=== PATIENT | female | born 1945 | race American Indian/Alaskan Native ===

== ENCOUNTER 2016-12-03 06:20 | Emergency (ER) | payer MEDICARE, OTHER ==
--- NOTE | 2016-12-03 06:43 | EDM.PDOC ---
<Mariam Alatorre - Last Filed: 12/03/16 06:36> ED HPI GENERAL MEDICAL PROBLEM - General Chief Complaint: Upper Extremity Injury/Pain Stated Complaint: IN BY AMBULANCE Time Seen by Provider: 12/03/16 06:20 Source of Information: Reports: Patient History Limitations: Reports: No Limitations - History of Present Illness INITIAL COMMENTS - FREE TEXT/NARRATIVE: ED via [facility] with primary c/o left upper arm pain after falling in bathroom. Denies loss of consciousness. Pain also to midline neck and right hip. Diabetic , recently being treated for pneumonia and chronic wound to right lower leg. Onset: Today Location: Reports: Neck, Pelvis, Upper Extremity, Left Quality: Reports: Ache, Throbbing Severity: Moderate Context: Reports: Trauma (fall in bathroom) Treatments [employer]: Reports: Other (see below) (left arm sling.) - Related Data Allergies Allergy/AdvReac Type Severity Reaction Status Date / Time lisinopril Allergy Cannot Verified 12/03/16 06:33 Remember pseudoephedrine Allergy Cannot Verified 12/03/16 06:33 Remember Home Meds: Home Meds Acetaminophen [Acetaminophen] 650 mg PO ASDIRECTED PRN 05/18/13 [History] Aspirin [Adult Low Dose Aspirin EC] 81 mg PO DAILY 05/18/13 [History] Calcium Carbonate/Vitamin D3 [Calcium 250+D] 1 tab PO DAILY 05/18/13 [History] Ferrous Gluconate 325 mg PO DAILY 05/18/13 [History] Insulin Detemir [Levemir] 15 units SQ BEDTIME 05/18/13 [History] Loratadine/Pseudoephedrine [Loratadine-D 24Hr] 1 tab PO Q12HR 05/18/13 [History] Losartan [Cozaar] 50 mg PO DAILY 05/18/13 [History] PARoxetine HCl [Paxil] 40 mg PO DAILY 05/18/13 [History] Social & Family History - Tobacco Use Smoking Status *Q: Former Smoker Years of Tobacco use: 10 Used Tobacco, but Quit: Yes Month Tobacco Last Used: 11/07/13 Second Hand Smoke Exposure: Yes - Alcohol Use Days Per Week of Alcohol Use: 6 Number of Drinks Per Day: 4 Total Drinks Per Week: 24 - Recreational Drug Use Recreational Drug Use: Yes Drug Use in Last 12 Months: Yes Recreational Drug Type: Reports: Marijuana/Hashish Recreational Drug Last Use: monthly Review of Systems - Review of Systems Review Of Systems: See Below Constitutional: Reports: No Symptoms Eyes: Reports: No Symptoms, Glasses Ears: Reports: No Symptoms Nose: Reports: No Symptoms Mouth/Throat: Reports: No Symptoms Respiratory: Reports: No Symptoms Cardiovascular: Reports: No Symptoms GI/Abdominal: Reports: No Symptoms Genitourinary: Reports: No Symptoms Musculoskeletal: Reports: Neck Pain (midline, previous plate), Joint Pain ( right hip) Skin: Reports: No Symptoms Neurological: Reports: No Symptoms ED EXAM, GENERAL - Physical Exam Exam: See Below Exam Limited By: No Limitations General Appearance: Alert, Moderate Distress Eye Exam: Bilateral Eye: EOMI, PERRL Ears: Normal External Exam, Normal TMs Ear Exam: Bilateral Ear: TM normal Nose: Other (abasion nose bridge below glasses nose bridge). No: Nasal Tenderness, Nasal Drainage Head: Atraumatic, Normocephalic Neck: Limited Range of Motion, Tender Midline Respiratory/Chest: No Respiratory Distress, Lungs Clear, Decreased Breath Sounds (bases) Cardiovascular: Normal Peripheral Pulses, Regular Rate, Rhythm. No: No Edema (1 -2+) GI/Abdominal: Normal Bowel Sounds, Soft Back Exam: No: Paraspinal Tenderness, Vertebral Tenderness Extremities: Arm Pain (left upper), Other (right hip pain) Neurological: Alert, Oriented Skin Exam: Warm, Dry, Wound/Incision (chronic wound open left lower extremity 2cm, no drainage. ) Course - Orders/Labs/Meds Orders: Active Orders 24 hr Category Date Time Status Immobilizer [RC] ASDIRECTED Care 12/03/16 10:14 Active CULTURE BLOOD [BC] Stat Lab 12/03/16 06:29 Received Morphine Med 12/03/16 08:35 Active 4 mg IVPUSH Q2H PRN Ondansetron [Zofran] Med 12/03/16 09:32 Active 4 mg IV Q8H PRN Medication Orders Morphine Sulfate (Morphine) 4 mg IVPUSH Q2H PRN PRN Reason: Pain Stop: 12/03/16 10:36 Last Admin: 12/03/16 09:31 Dose: 4 mg Ondansetron HCl (Zofran) 4 mg IV Q8H PRN PRN Reason: Nausea/Vomiting Labs: Laboratory Tests 12/03/16 12/03/16 12/03/16 Range/Units 06:29 06:29 06:29 WBC 7.3 (5.0-10.0) 10^3/uL RBC 3.82 L (4.2-5.4) 10^6/uL Hgb 11.1 L (12.0-16.0) g/dL Hct 33.5 L (37.0-47.0) % MCV 87.7 (80-100) fL MCH 29.1 (27.0-34.0) pg MCHC 33.1 (33.0-35.0) g/dL Plt Count 556 H (150-450) 10^3/uL Neut % (Auto) 68.4 (42.2-75.2) % Lymph % (Auto) 24.5 (20.5-50.1) % [place] % (Auto) 5.6 (2-8) % Eos % (Auto) 1.2 (1.0-3.0) % Baso % (Auto) 0.3 (0.0-1.0) % Add Manual Diff Yes Neutrophils % (Manual) 61 % Band Neutrophils % 5 % Lymphocytes % (Manual) 34 % Platelet Estimate Increased Sodium 127 L (135-145) mmol/L Potassium 3.9 (3.6-5.0) mmol/L Chloride 90 L (101-111) mmol/L Carbon Dioxide 25.0 (21.0-31.0) mmol/L Anion Gap 15.9 BUN 13 (7-18) mg/dL Creatinine 1.1 (0.6-1.3) mg/dL Est Cr Clr Drug Dosing 39.93 mL/min Estimated GFR (MDRD) 49 BUN/Creatinine Ratio 11.81 Glucose 349 H (74-105) mg/dL POC Glucose (70-105) mg/dl Lactic Acid 2.4 H (0.5-2.2) mmol/L Calcium 8.6 (8.4-10.2) mg/dl Total Bilirubin 0.5 (0.2-1.0) mg/dL AST 80 H (10-42) IU/L ALT 64 H (10-60) IU/L Alkaline Phosphatase 95 (42-121) IU/L Creatine Kinase 74 (26-174) IU/L Troponin I < 0.02 (0.00-0.02) ng/ml Total Protein 8.4 H (6.7-8.2) g/dl Albumin 3.2 (3.2-5.5) g/dl Globulin 5.2 Albumin/Globulin Ratio 0.62 Amylase 59 (28-100) U/L Lipase 48 (22-51) U/L Urine Color (YELLOW) Urine Appearance (CLEAR) Urine pH (5.0-9.0) Ur Specific [place] (1.005-1.030) Urine Protein (NEGATIVE) Urine Glucose (UA) (NEGATIVE) Urine Ketones (NEGATIVE) Urine Occult Blood (NEGATIVE) Urine Nitrite (NEGATIVE) Urine Bilirubin (NEGATIVE) Urine Urobilinogen (0.2-1.0) mg/dL Ur Leukocyte Esterase (NEGATIVE) Urine RBC /HPF Urine WBC (0-5/HPF) /HPF Ur Epithelial Cells /HPF Urine Bacteria (0-FEW/HPF) /HPF 12/03/16 12/03/16 Range/Units 08:03 08:55 WBC (5.0-10.0) 10^3/uL RBC (4.2-5.4) 10^6/uL Hgb (12.0-16.0) g/dL Hct (37.0-47.0) % MCV (80-100) fL MCH (27.0-34.0) pg MCHC (33.0-35.0) g/dL Plt Count (150-450) 10^3/uL Neut % (Auto) (42.2-75.2) % Lymph % (Auto) (20.5-50.1) % [place] % (Auto) (2-8) % Eos % (Auto) (1.0-3.0) % Baso % (Auto) (0.0-1.0) % Add Manual Diff Neutrophils % (Manual) % Band Neutrophils % % Lymphocytes % (Manual) % Platelet Estimate Sodium (135-145) mmol/L Potassium (3.6-5.0) mmol/L Chloride (101-111) mmol/L Carbon Dioxide (21.0-31.0) mmol/L Anion Gap BUN (7-18) mg/dL Creatinine (0.6-1.3) mg/dL Est Cr Clr Drug Dosing mL/min Estimated GFR (MDRD) BUN/Creatinine Ratio Glucose (74-105) mg/dL POC Glucose 338 H (70-105) mg/dl Lactic Acid (0.5-2.2) mmol/L Calcium (8.4-10.2) mg/dl Total Bilirubin (0.2-1.0) mg/dL AST (10-42) IU/L ALT (10-60) IU/L Alkaline Phosphatase (42-121) IU/L Creatine Kinase (26-174) IU/L Troponin I (0.00-0.02) ng/ml Total Protein (6.7-8.2) g/dl Albumin (3.2-5.5) g/dl Globulin Albumin/Globulin Ratio Amylase (28-100) U/L Lipase (22-51) U/L Urine Color Yellow (YELLOW) Urine Appearance Clear (CLEAR) Urine pH 5.5 (5.0-9.0) Ur Specific [place] <= 1.005 (1.005-1.030) Urine Protein 30 H (NEGATIVE) Urine Glucose (UA) 500 H (NEGATIVE) Urine Ketones Negative (NEGATIVE) Urine Occult Blood Trace-lysed H (NEGATIVE) Urine Nitrite Negative (NEGATIVE) Urine Bilirubin Negative (NEGATIVE) Urine Urobilinogen 0.2 (0.2-1.0) mg/dL Ur Leukocyte Esterase Negative (NEGATIVE) Urine RBC 0-5 /HPF Urine WBC 5-10 H (0-5/HPF) /HPF Ur Epithelial Cells Many H /HPF Urine Bacteria Rare (0-FEW/HPF) /HPF Meds: Medications Generic Name Dose Route Start Last Admin Trade Name Freq PRN Reason Stop Dose Admin Morphine Sulfate 4 mg 12/03/16 08:35 12/03/16 09:31 Morphine IVPUSH 12/03/16 10:36 4 mg Q2H PRN Administration Pain Ondansetron HCl 4 mg 12/03/16 09:32 Zofran IV Q8H PRN Nausea/Vomiting Discontinued Medications Generic Name Dose Route Start Last Admin Trade Name Freq PRN Reason Stop Dose Admin Hydrocodone Bitart/Acetaminophen 1 tab 12/03/16 10:18 [place] 325-5 Mg PO 12/03/16 10:19 ONETIME ONE Sodium Chloride 1,000 mls @ 999 mls/hr 12/03/16 07:51 12/03/16 07:59 Normal Saline IV 12/03/16 08:51 999 mls/hr .BOLUS ONE Administration Morphine Sulfate 4 mg 12/03/16 07:10 12/03/16 07:36 Morphine IVPUSH 12/03/16 07:11 4 mg ONETIME ONE Administration Ondansetron HCl 4 mg 12/03/16 07:10 12/03/16 07:37 Zofran IV 12/03/16 07:11 4 mg ONETIME ONE Administration Departure - Departure Disposition: Home, Self-Care 01 Clinical Impression: Fracture of humerus Qualifiers: Encounter type: initial encounter Humerus Location: proximal Fracture type: closed Fracture morphology: unspecified fracture morphology Laterality: left Qualified Code(s): S42.202A - Unspecified fracture of upper end of left humerus , initial encounter for closed fracture - Discharge Information Instructions: How to Use a Shoulder Immobilizer, Humerus Fracture Treated With Immobilization, [id number] Forms: ED Department Discharge Additional Instructions: Take the pain medication as needed. keep the arm in the immobilizer until seen by the orthopedic doctor. You will need to go on Sunday December 11, [address] Robertson in [facility] in [place]. paxton valenzuela [phone] to make an appointment for Friday. - My Orders Last 24 Hours: My Active Orders 12/03/16 08:35 Morphine 4 mg IVPUSH Q2H PRN 12/03/16 09:32 Ondansetron [Zofran] 4 mg IV Q8H PRN 12/03/16 10:14 Immobilizer [RC] ASDIRECTED - Assessment/Plan Last 24 Hours: My Active Orders 12/03/16 08:35 Morphine 4 mg IVPUSH Q2H PRN 12/03/16 09:32 Ondansetron [Zofran] 4 mg IV Q8H PRN 12/03/16 10:14 Immobilizer [RC] ASDIRECTED <Con Kemp - Last Filed: 12/03/16 10:36> Course - Re-Assessments/Exams Free Text/Narrative Re-Assessment/Exam: 12/03/16 07:39 Assessed pt, currently on stretcher in brace. c/o pain to left arm and right hip. Cervical CT revealed no acute fracture however pt very tender in upper cervical area. With c-spine alignment maintained via second person, cervical spine evaluated and revealed bruising to upper cervical area at scalp line. no tenderness noted to palpation of lateral cervical spine or mid cervical spine right above or below bruise. Pt states that she does not have bone pain, mostly on the skin to light touch. LUE in sling reveal small abrasion to upper forearm with no evidence of open injury. Pulses present bilaterally R>L radial pulse. 12/03/16 08:34 Spoke with [facility] call who states that orthopedist is in the OR and will return call when he is complete. 12/03/16 09:38 returned call from [facility] to inform that Dr. strickland was still in surgery and it would be about 45 mins before he would be able to return call. 12/03/16 10:[address] Robertson, [facility] orthopedics who states that pt shoulder be placed in a shoulder immobilizer and to follow up in his clinic on December 11. No acute fractures of her pelvic area according to his read. Will dc patient home. Departure - Departure Time of Disposition: 10:21 Condition: Good - My Orders Last 24 Hours: My Active Orders 12/03/16 08:35 Morphine 4 mg IVPUSH Q2H PRN 12/03/16 09:32 Ondansetron [Zofran] 4 mg IV Q8H PRN 12/03/16 10:14 Immobilizer [RC] ASDIRECTED - Assessment/Plan Last 24 Hours: My Active Orders 12/03/16 08:35 Morphine 4 mg IVPUSH Q2H PRN 12/03/16 09:32 Ondansetron [Zofran] 4 mg IV Q8H PRN 12/03/16 10:14 Immobilizer [RC] ASDIRECTED
[2016-12-03] MEDS ORDERED: Ondansetron 4 MG/2 ML SDV IV ONE (07:10)
[2016-12-03] MEDS ORDERED: Morphine 4 MG/ML Syringe IVPUSH ONE (07:10)
[2016-12-03 07:12] LABS: CHLORIDE,CL 90 mmol/L (101-111); SODIUM,NA 127 mmol/L (135-145)
[2016-12-03] MEDS ORDERED: Sodium Chloride 0.9% 1,000 ML IV ONE (07:51)
[2016-12-03] MEDS ORDERED: Morphine 4 MG/ML Syringe IVPUSH PRN (08:35)
[2016-12-03] MEDS ORDERED: Ondansetron 4 MG/2 ML SDV IV PRN (09:32)
[2016-12-03] MEDS ORDERED: Acetaminophen/HYDROcodone 325-5 MG Tab PO ONE (10:18)
== END 2016-12-03 10:50 | disposition home or self-care (01) ==
LOC: DL.ED 06:20
DX: S42.202A Unspecified fracture of upper end of left humerus, initial encounter for closed fracture (principal); S50.812A Abrasion of left forearm, initial encounter; W18.30XA Fall on same level, unspecified, initial encounter; E11.9 Type 2 diabetes mellitus without complications; Z79.4 Long term (current) use of insulin; Z79.899 Other long term (current) drug therapy; Z79.82 Long term (current) use of aspirin; Z87.891 Personal history of nicotine dependence; F12.90 Cannabis use, unspecified, uncomplicated; Z88.8 Allergy status to other drugs, medicaments and biological substances; S00.31XA Abrasion of nose, initial encounter; S81.802A Unspecified open wound, left lower leg, initial encounter; S22.41XA Multiple fractures of ribs, right side, initial encounter for closed fracture
CPT/HCPCS: 36415; 71010; 72125; 72192; 73060; 80053; 81001; 82150; 82550; 82962; 83605; 83690; 84484; 85025; 87040; 96361; 96374; 96375; 96376; 99284; 99285; A9270; J2270; J2405; J7030

== ENCOUNTER 2024-03-23 05:57 | Emergency (ER) | payer MEDICARE, OTHER ==
[2024-03-23 06:17] VITALS: BP 136/74; PULSE 91
[2024-03-23 06:20] LABS: BASOPHILS PERCENT AUTO 0.1 % (0.0-1.0); HEMATOCRIT 34.9 % (37.0-47.0); HEMOGLOBIN 11.2 g/dL (12.0-16.0); LYMPHOCYTES PERCENT AUTO 9.8 % (20.5-50.1); MEAN CORPUSCULAR HEMOGLOBIN 29.3 pg (27.0-34.0); MEAN CORPUSCULAR HGB CONC 32.1 g/dL (33.0-35.0); MEAN CORPUSCULAR VOLUME 91.4 fL (80-100); MONOCYTES PERCENT AUTO 6.4 % (2-8); NEUTROPHILS PERCENT AUTO 83.7 % (42.2-75.2); PLATELET COUNT,PLT 494 10^3/uL (150-450); RED BLOOD CELL COUNT 3.82 10^6/uL (4.2-5.4)
[2024-03-23] MEDS: Acetaminophen/HYDROcodone 325-5 MG Tab PO ONE (06:23)
[2024-03-23] MEDS: Sodium Chloride 0.9% 1,000 ML IV ONE (06:23)
[2024-03-23 06:31] LABS: ALBUMIN 2.5 g/dL (3.4-5.0); BILIRUBIN TOTAL 0.7 mg/dL (0.2-1.0); BUN/CREATININE RATIO 18.3 (No establ ref range); CALCIUM 9.3 mg/dL (8.5-10.1); CREATININE 2.35 mg/dL (0.55-1.02); EST CRCL DRUG DOSING (CG) 16.85 mL/min; PROTEIN TOTAL,TP 9.4 g/dL (6.4-8.2)
[2024-03-23 06:32] LABS: A/G RATIO 0.36
== END 2024-03-23 07:55 | disposition home health service (06) ==
LOC: DL.ED 05:57
DX: S93.412A Sprain of calcaneofibular ligament of left ankle, initial encounter (principal); S93.602A Unspecified sprain of left foot, initial encounter; S80.02XA Contusion of left knee, initial encounter; S20.211A Contusion of right front wall of thorax, initial encounter; Z79.82 Long term (current) use of aspirin; Z79.4 Long term (current) use of insulin; Z79.899 Other long term (current) drug therapy; Z88.8 Allergy status to other drugs, medicaments and biological substances; Z88.6 Allergy status to analgesic agent
CPT/HCPCS: 36415; 71111; 73562; 73600; 73620; 80053; 85025; 96360; 99284; A9270; J7030

== ENCOUNTER 2024-09-23 23:48 | Emergency (ER) | payer MEDICARE, OTHER ==
[2024-09-23 23:58] LABS: BASOPHILS PERCENT AUTO 0.1 % (0.0-1.0); HEMATOCRIT 31.2 % (37.0-47.0); LYMPHOCYTES PERCENT AUTO 3.3 % (20.5-50.1); MEAN CORPUSCULAR HEMOGLOBIN 28.3 pg (27.0-34.0); MEAN CORPUSCULAR HGB CONC 32.1 g/dL (33.0-35.0); MEAN CORPUSCULAR VOLUME 88.4 fL (80-100); MONOCYTES PERCENT AUTO 4.1 % (2-8); NEUTROPHILS PERCENT AUTO 92.5 % (42.2-75.2); PLATELET COUNT,PLT 130 10^3/uL (150-450); RED BLOOD CELL COUNT 3.53 10^6/uL (4.2-5.4); WHITE BLOOD CELL COUNT,WBC 10.7 10^3/uL (5.0-10.0)
[2024-09-24] MEDS: Sodium Chloride 0.9% 1,000 ML IV ONE ×2 (00:11→00:55)
[2024-09-24 00:21] LABS: ALANINE AMINOTRANSFERASE,ALT 23 U/L (14-59); ALBUMIN 2.4 g/dL (3.4-5.0); ALKALINE PHOSPHATASE 73 U/L (46-116); ASPARTATE AMNIOTRANSFERASE,AST 36 U/L (15-37); BILIRUBIN TOTAL 0.7 mg/dL (0.2-1.0); BLOOD UREA NITROGEN,BUN 55 mg/dL (7-18); BUN/CREATININE RATIO 24.7 (No establ ref range); CALCIUM 9.3 mg/dL (8.5-10.1); CREATININE 2.23 mg/dL (0.55-1.02); MAGNESIUM 1.5 mg/dL (1.8-2.4); POTASSIUM,K 3.2 mmol/L (3.5-5.1); PROTEIN TOTAL,TP 7.4 g/dL (6.4-8.2); SODIUM,NA 128 mmol/L (136-145)
[2024-09-24 00:28] LABS: ANION GAP 15.2 mEq/L (7-13); CARBON DIOXIDE,CO2 23 mmol/L (21-32); CHLORIDE,CL 93 mmol/L (98-107)
[2024-09-24 00:44] LABS: A/G RATIO 0.48; ESTIMATED GFR 22 mL/min (>=60); GLUCOSE RANDOM 427 mg/dL (70-99)
[2024-09-24 00:45] LABS: C-REACTIVE PROTEIN > 25.00 ng/dL (<=0.50); LACTIC ACID 2.3 mmol/L (0.4-2.0)
[2024-09-24] MEDS: Norepinephrine Bit/D5W Premix 250 ML ONE (00:55)
[2024-09-24] MEDS ORDERED: Norepinephrine Bit/D5W Premix 250 ML IV SCH (01:00)
[2024-09-24 01:18] LABS: INR 0.9 (0.9-1.2); PROTHROMBIN TIME 9.3 SEC (9.0-12.0); PTT,PARTIAL THROMBOPLSTIN TIME 30.9 SEC (22.0-34.0)
[2024-09-24] MEDS: Heparin Sodium 5,000 Units/ML Vial IVPUSH ONE (01:30)
[2024-09-24] MEDS: Cefepime 1 GM Vial IVPUSH ONE (01:31)
[2024-09-24] MEDS: VANCOmycin 1 GM in Sodium Chloride 0.9% 250 ML IV ONE (01:34)
[2024-09-24] MEDS: Heparin Sodium/0.45% NaCl 25,000 UNITS/500 ML BAG IV SCH (01:36)
[2024-09-24] MEDS: Magnesium Sulf/Wat 2 GM/50 mL 2 GM in Premix Bag 1 BAG IV SCH (01:47)
[2024-09-24 01:51] VITALS: BP 108/83; PULSE 115
[2024-09-24] MEDS ORDERED: Insulin Regular, Human 100 Units/ML 10 ML Vial ONE (02:11)
[2024-09-24] MEDS: Potassium Chloride 20 MEQ in Premix Bag 1 BAG IV ONE (02:15)
[2024-09-24] MEDS ORDERED: Glucagon,Human Recombinant 1 MG Vial IM PRN (02:16)
[2024-09-24] MEDS ORDERED: 50% Dextrose in Water 50 ML Syringe IVPUSH PRN (02:16)
[2024-09-24] MEDS: Insulin Regular, Human 100 Units/ML 10 ML Vial SUBCUT ONE (02:17)
== END 2024-09-24 03:06 ==
LOC: DL.ED 23:48
DX: A41.9 Sepsis, unspecified organism (principal); Z88.8 Allergy status to other drugs, medicaments and biological substances; Z79.82 Long term (current) use of aspirin; Z79.899 Other long term (current) drug therapy; Z79.4 Long term (current) use of insulin
CPT/HCPCS: 36415; 71045; 80053; 82947; 83605; 83735; 84145; 84484; 85025; 85379; 85610; 85730; 86140; 87040; 87077; 87428-QW; 93005; 93010; 96361; 96365; 96366; 96368; 96375; 99285; 99285-25; J0692; J1644; J3475; J3480; J7030; J7050